=== PATIENT | male | born 1965 ===

== ENCOUNTER 2016-09-25 14:41 | Inpatient (IN) | payer BC ==
[2016-09-25] MEDS ORDERED: Sodium Chloride 0.9% 1,000 ML IV STA ×2 (14:51→16:30)
[2016-09-25 15:32] LABS: BASO % 0.2 % (0.0-2.0); HEMOGLOBIN 14.4 g/dL (12.0-18.0); LYMPH # 0.8 K/uL (1.0-4.3); LYMPH % 6.3 % (20.0-40.0); MEAN CELL VOLUME 92.7 fl (80.0-94.0); MEAN CORPUSCULAR HEMOGLOBIN 31.8 pg (27.0-31.0); MEAN CORPUSCULAR HGB CONC 34.4 g/dL (33.0-37.0); MONO # 0.6 K/uL (0.0-0.8); MONO % 4.8 % (0.0-10.0); NEUT # 11.4 K/uL (1.8-7.0); NEUT % 88.7 % (50.0-75.0); NRBC % 0.1 % (0.0-0.0); PLATELET COUNT 202 K/uL (130-400); RBC 4.52 Mil/uL (4.40-5.90); WHITE BLOOD COUNT 12.8 K/uL (4.8-10.8)
[2016-09-25] MEDS ORDERED: Iohexol 240 (50 ml) PO ONE ×2 (15:49)
[2016-09-25 16:01] LABS: ALB/GLOB RATIO 1.4 (1.0-2.1); ALBUMIN 4.6 g/dL (3.5-5.0); ALT/SGPT 40 U/L (21-72); AST/SGOT 41 U/L (17-59); BLOOD UREA NITROGEN 12 mg/dl (9-20); CALCIUM 10.1 mg/dL (8.4-10.2); GFR AFRICAN-AMERICAN > 60; GFR NON-AFRICAN AMERICAN > 60; LIPASE 23 U/L (23-300)
[2016-09-25] MEDS ORDERED: Iohexol 240 (50 ml) ONE (16:08)
[2016-09-25 16:26] LABS: VENOUS BLOOD GAS BASE EXCESS -1.9 mmol/L (0.0-2.0); VENOUS BLOOD GAS PCO2 35 mmHg (40-60); VENOUS BLOOD GAS PO2 28 mm/Hg (30-55); VENOUS BLOOD PH 7.41 (7.32-7.43)
--- NOTE | 2016-09-25 17:21 | ED PDOC ---
HPI: Abdomen Time Seen by Provider: 09/25/16 14:50 Chief Complaint (Nursing): GI Problem Chief Complaint (Provider): GI Problem History Per: Patient History/Exam Limitations: no limitations Onset/Duration Of Symptoms: Days Current Symptoms Are (Timing): Still Present Additional Complaint(s): 51 y/o male with a past medical history of chronic back pain (On Opioid Pain Management for 10 years) who presents to the emergency department with a complaint of an abdominal pain, loose stools, fever, vomiting, malaise, and generalized weakness x2 days. Described pain as diffused and sharp in nature but poorly localized. Denies previous abdominal surgeries or drug abuse. Past Medical History Reviewed: Historical Data, Nursing Documentation, Vital Signs Vital Signs: Last Vital Signs Temp 99.8 F H 09/25/16 14:42 Pulse 114 H 09/25/16 14:42 Resp 18 09/25/16 14:42 BP 131/67 09/25/16 14:42 Pulse Ox 98 09/25/16 17:38 - Medical History PMH: Back Problems, Gastritis - Family History Family History: States: Unknown Family Hx - Social History Current smoker - smoking cessation education provided: No Alcohol: None Drugs: Denies - Allergies Allergies/Adverse Reactions: Allergies Allergy/AdvReac Type Severity Reaction Status Date / Time No Known Allergies Allergy Verified 09/25/16 14:42 Review of Systems ROS Statement: Except As Marked, All Systems Reviewed And Found Negative Constitutional: Positive for: Fever, Weakness (Generalized), Malaise Gastrointestinal: Positive for: Vomiting, Abdominal Pain, Diarrhea Physical Exam - Reviewed Nursing Documentation Reviewed: Yes Vital Signs Reviewed: Yes - Physical Exam Appears: Positive for: Non-toxic, Uncomfortable Head Exam: Positive for: ATRAUMATIC, NORMAL INSPECTION, NORMOCEPHALIC Skin: Positive for: Normal Color, Warm, Dry ENT: Positive for: Normal ENT Inspection. Negative for: Pharyngeal Erythema Neck: Positive for: Normal, Supple Cardiovascular/Chest: Positive for: Regular Rate, Rhythm. Negative for: Murmur Respiratory: Positive for: Normal Breath Sounds. Negative for: Accessory Muscle Use, Respiratory Distress Gastrointestinal/Abdominal: Positive for: Soft, Tenderness (Diffuse abdominal tenderness). Negative for: Normal Exam Extremity: Positive for: Normal ROM. Negative for: Pedal Edema Neurologic/Psych: Positive for: Alert, Oriented - Laboratory Results Result Diagrams: 09/25/16 15:20 09/25/16 15:20 - ECG O2 Sat by Pulse Oximetry: 98 (RA) Pulse Ox Interpretation: Normal Medical Decision Making Medical Decision Making: Time: 14:50 Initial impression: Abdominal Pain Initial plan: --COMP Metabolic Panel --Lipase --CBC w/ differential --Sodium Chloride 1,000 ml IV 1,000 mls/hr --Ondansetron 4 mg IV --Urinalysis Time: 15:48 --Toradol 15 mg IV --Iohexol 50 ml PO --Abd pelvis PO & IV Contrast CT Time: 16:06 --VBG Shock Panel Time: 1630 --VBG Shock Panel --Sodium Chloride 1,000 ml IV 1,000 mls/hr --Reevaluation lactate elevated 3.6, repeat 3hr VBG w lactate ordered and IVF continued. endorse Dr Tovar 530p pending re-eval, CT abd and dispo Scribe Attestation: Documented by Estela Mcgregor, acting as a scribe for Lc Dorantes MD. Provider Scribe Attestation: All medical record entries made by the Scribe were at my direction and personally dictated by me. I have reviewed the chart and agree that the record accurately reflects my personal performance of the history, physical exam, medical decision making, and the department course for this patient. I have also personally directed, reviewed, and agree with the discharge instructions and disposition. Disposition - Clinical Impression Clinical Impression: Abdominal pain, Dehydration - Patient ED Disposition Is Patient to be Admitted: Transfer of Care Counseled Patient/Family Regarding: Studies Performed, Diagnosis - Disposition Disposition: Transfer of Care Disposition Time: 17:38 Condition: STABLE Patient Signed Over To: Elena Tovar
--- NOTE | 2016-09-25 17:42 | ED PDOC ---
- Laboratory Results Result Diagrams: 09/26/16 06:50 09/26/16 06:50 - ECG O2 Sat by Pulse Oximetry: 98 (RA) Disposition - Clinical Impression Clinical Impression: Colitis - POA Present On Arrival: None - Disposition Disposition: Transfer of Care Disposition Time: 19:00 Condition: STABLE Patient Signed Over To: Raghu Man Handoff Comments: Pending CT and repeat lactate. Addendum Addendum: 09/25/16 17:42 Pt signed out by Dr. Dorantes pending CT and repeat lactate.
[2016-09-25] MEDS ORDERED: Sodium Chloride 0.9% 50 ML IV ONE (17:49)
[2016-09-25] MEDS ORDERED: Iohexol 300 100 ML IJ ONE (17:49)
[2016-09-25 18:03] LABS: LYMPHOCYTE 9 % (20-50); MONOCYTE 6 % (0-10); NEUTROPHIL 85 % (42-75); PLATELET ESTIMATE NORMAL (NORMAL); TOTAL CELLS COUNTED 100
[2016-09-25 18:04] LABS: ANISOCYTOSIS SLIGHT; OVALOCYTES SLIGHT; TEARDROP CELLS SLIGHT
[2016-09-25 18:30] LABS: URINE BACTERIA RARE (<OCC); URINE BILIRUBIN NEGATIVE (NEGATIVE); URINE BLOOD NEGATIVE (NEGATIVE); URINE CLARITY CLEAR (Clear); URINE COLOR YELLOW (YELLOW); URINE GLUCOSE (UA) NEG (Normal); URINE LEUKOCYTE ESTERASE NEG Leu/uL (Negative); URINE NITRATE NEGATIVE (NEGATIVE); URINE PROTEIN 100 mg/dL (NEGATIVE); URINE UROBILINOGEN 0.2-1.0 mg/dL (0.2-1.0)
--- NOTE | 2016-09-25 19:22 | ED PDOC ---
- Laboratory Results Result Diagrams: 09/25/16 15:20 09/25/16 15:20 - ECG O2 Sat by Pulse Oximetry: 98 Medical Decision Making Medical Decision Makin:00 Patient is signed out to me by Elena Tovar MD pending repeat labs, CT abdomen and pelvis with PO and IV contrast, reevaluation, and final disposition. 19:56 CT abdomen and pelvis read and reviewed by radiologist. FINDINGS: Lower thorax: Heart size is normal. Lung bases are clear ABDOMEN: Liver: There are multiple small low-attenuation lesions in the liver too small to characterize.There is fatty infiltration of the liver. Gallbladder and bile ducts: Gallbladder is distended. Common bile duct is unremarkable. Pancreas: Pancreas is mildly atrophic. Spleen: unremarkable Adrenals: unremarkable Kidneys and ureters: unremarkable Stomach and bowel: Stomach is partially distended. Rotation is normal. Small bowel is incompletely opacified with contrast. There is no small bowel obstruction. Terminal ileum is unremarkable. Appendix is not visualized. There is no pericecal inflammation. Colon is incompletely distended which limits evaluation. There is mid and distal transverse colon wall thickening. There is splenic flexure descending colon sigmoid and rectal wall thickening. Appendix: See stomach and bowel PELVIS: Bladder: unremarkable Reproductive: Prostate is unremarkable. There is mild prominence of the seminal vesicles. There is minimal edema adjacent to the seminal vesicles. ABDOMEN and PELVIS: Intraperitoneal space: There is no free air.There is no free fluid. Bones/joints: There are degenerative changes in the osseus structures. Soft tissues: There is a small fat containing umbilical hernia Vasculature: There are calcified phleboliths. Vascular structures are unremarkable. Lymph nodes: There is no pathologic adenopathy. IMPRESSION: Colitis; fatty liver 20:15 Upon provider reevaluation, patient reports having persistent pain. Given CT and lab findings, patient will be admitted for further treatment. Patient will be admitted for colitis and severe sepsis. Discussed case with . Scribe Attestation: Documented by Laurita Anders, acting as a scribe for Raghu Man MD. Provider Scribe Attestation: All medical record entries made by the Scribe were at my direction and personally dictated by me. I have reviewed the chart and agree that the record accurately reflects my personal performance of the history, physical exam, medical decision making, and the department course for this patient. I have also personally directed, reviewed, and agree with the discharge instructions and disposition. Disposition Discussed With : Sd Bonner Doctor Will See Patient In The: Hospital Counseled Patient/Family Regarding: Studies Performed, Diagnosis - Clinical Impression Clinical Impression: Colitis - POA Present On Arrival: None - Disposition Disposition: Admitted as In-Patient Disposition Time: 20:15 Condition: FAIR
--- NOTE | 2016-09-25 19:56 | CT ---
EXAM: CT Abdomen and Pelvis With Intravenous Contrast CLINICAL HISTORY: 51 years old, male; Pain; Abdominal pain; Acute; Additional info: Abdominal pain, vomiting, fever TECHNIQUE: Axial computed tomography images of the abdomen and pelvis with intravenous contrast. This CT exam was performed using one or more of the following dose reduction techniques: automated exposure control, adjustment of the mA and/or kV according to patient size, and/or use of iterative reconstruction technique. Coronal and sagittal reformatted images were created and reviewed. CONTRAST: 95 mL of omnipaque 300 administered intravenously. EXAM DATE/TIME: 09/25/2016 3:49 PM COMPARISON: There are no prior studies for comparison. FINDINGS: Lower thorax: Heart size is normal. Lung bases are clear ABDOMEN: Liver: There are multiple small low-attenuation lesions in the liver too small to characterize.There is fatty infiltration of the liver. Gallbladder and bile ducts: Gallbladder is distended. Common bile duct is unremarkable. Pancreas: Pancreas is mildly atrophic. Spleen: unremarkable Adrenals: unremarkable Kidneys and ureters: unremarkable Stomach and bowel: Stomach is partially distended. Rotation is normal. Small bowel is incompletely opacified with contrast. There is no small bowel obstruction. Terminal ileum is unremarkable. Appendix is not visualized. There is no pericecal inflammation. Colon is incompletely distended which limits evaluation. There is mid and distal transverse colon wall thickening. There is splenic flexure descending colon sigmoid and rectal wall thickening. Appendix: See stomach and bowel PELVIS: Bladder: unremarkable Reproductive: Prostate is unremarkable. There is mild prominence of the seminal vesicles. There is minimal edema adjacent to the seminal vesicles. ABDOMEN and PELVIS: Intraperitoneal space: There is no free air.There is no free fluid. Bones/joints: There are degenerative changes in the osseus structures. Soft tissues: There is a small fat containing umbilical hernia Vasculature: There are calcified phleboliths. Vascular structures are unremarkable. Lymph nodes: There is no pathologic adenopathy. IMPRESSION: Colitis; fatty liver
[2016-09-25 20:10] LABS: VENOUS BLOOD GAS BASE EXCESS -1.8 mmol/L (0.0-2.0); VENOUS BLOOD GAS PCO2 39 mmHg (40-60); VENOUS BLOOD GAS PO2 36 mm/Hg (30-55); VENOUS BLOOD PH 7.38 (7.32-7.43)
[2016-09-25] MEDS ORDERED: Ciprofloxacin 400mg/200ml D5W 400 MG/200 ML BAG IV STA (20:13)
[2016-09-25] MEDS ORDERED: metroNIDAZOLE 500mg/100ml NS 100 ML IVPB STA (20:13)
[2016-09-25] MEDS ORDERED: metroNIDAZOLE 500mg/100ml NS 100 ML IVPB ONE (20:35)
[2016-09-25] MEDS ORDERED: Ciprofloxacin 400mg/200ml D5W 400 MG/200 ML BAG IVPB ONE (20:35)
[2016-09-25] MEDS: Dextrose 5%/0.45% NS 1,000 ML IV SCH (20:38)
[2016-09-25] MEDS ORDERED: FENTANYL 75 MCG TOP PRN (22:38)
[2016-09-26] MEDS ORDERED: metroNIDAZOLE 500mg/100ml NS 100 ML IVPB SCH (01:00)
[2016-09-26] MEDS: Dextrose 5%/0.45% NS 1,000 ML IV SCH ×3 (04:47→21:08)
[2016-09-26] MEDS: metroNIDAZOLE 500mg/100ml NS 100 ML IVPB SCH ×3 (04:49→23:42)
[2016-09-26] MEDS: Dextrose 5%/0.9% NS 1,000 ML IV SCH ×4 (05:53→18:44)
[2016-09-26 07:34] LABS: ALB/GLOB RATIO 1.3 (1.0-2.1); ALBUMIN 3.8 g/dL (3.5-5.0); ALT/SGPT 38 U/L (21-72); AST/SGOT 27 U/L (17-59); BLOOD UREA NITROGEN 9 mg/dl (9-20); CALCIUM 8.4 mg/dL (8.4-10.2); GFR AFRICAN-AMERICAN > 60; GFR NON-AFRICAN AMERICAN > 60
[2016-09-26 07:43] LABS: BASO % 0.1 % (0.0-2.0); EOS % 0.1 % (0.0-4.0); HEMOGLOBIN 13.1 g/dL (12.0-18.0); LYMPH # 2.2 K/uL (1.0-4.3); LYMPH % 22.7 % (20.0-40.0); MEAN CELL VOLUME 93.9 fl (80.0-94.0); MEAN CORPUSCULAR HEMOGLOBIN 32.1 pg (27.0-31.0); MEAN CORPUSCULAR HGB CONC 34.2 g/dL (33.0-37.0); MEAN PLATELET VOLUME 7.2 fl (7.2-11.7); MONO # 0.7 K/uL (0.0-0.8); MONO % 7.3 % (0.0-10.0); NEUT # 6.9 K/uL (1.8-7.0); NEUT % 69.8 % (50.0-75.0); NRBC % 0.1 % (0.0-0.0); RBC 4.06 Mil/uL (4.40-5.90); RED CELL DISTRIBUTION WIDTH 14.1 % (11.5-14.5); WHITE BLOOD COUNT 9.8 K/uL (4.8-10.8)
--- NOTE | 2016-09-26 11:02 | CP.PCM.PN ---
<Yaron Tang - Last Filed: 09/26/16 12:08> Subjective - Date & Time of Evaluation Date of Evaluation: 09/26/16 Time of Evaluation: 11:02 - Subjective Subjective: pt seen and evaluated at bedside this morning. No acute events overnight. Pt reports poor sleep overnight due to noise and discomfort. Lying in bed, mild discomfort, NAD. No episodes of vomiting or diarrhea overnight. pt reports feeling hungry. Has no been OOB since yesterday. Also complains of mild headaches which he feels is due to lack of food and poor sleep. Denies changes in vision. No other complaints. Denies fever/chills, changes in vision, CP/SOB/ palpitations, N/V/D, urinary symptoms, numbness/tingling. Objective - Vital Signs/Intake and Output Vital Signs (last 24 hours): Temp Pulse Resp BP Pulse Ox 98.4 F 89 18 119/68 98 09/26/16 09:00 09/26/16 09:00 09/26/16 09:00 09/26/16 09:00 09/26/16 10:52 - Medications Medications: Current Medications Acetaminophen (Tylenol 325mg Tab) 650 mg PO Q6 PRN PRN Reason: Headache Docusate Sodium (Colace) 100 mg PO BID [facility] Fentanyl (Duragesic) 1 patch TD Q3D [facility] Last Admin: 09/26/16 10:21 Dose: 1 patch Dextrose/Sodium Chloride (Dextrose 5%/0.45% Ns 1000 Ml) 1,000 mls @ 125 mls/hr IV .Q8H [facility] Last Admin: 09/26/16 04:47 Dose: Not Given Ciprofloxacin (Cipro 400mg/200ml Dsw) 400 mg in 200 mls @ 200 mls/hr IVPB Q12 [facility] Dextrose/Sodium Chloride (Dextrose 5%/0.9% Ns 1000 Ml) 1,000 mls @ 100 mls/hr IV .Q10H [facility] Stop: 09/26/16 22:42 Last Admin: 09/26/16 09:14 Dose: Not Given Metronidazole (Flagyl 500mg/100ml Ns) 100 mls @ 100 mls/hr IVPB Q8@0400,1200, 2000 [facility] Last Admin: 09/26/16 04:49 Dose: 100 mls/hr Ondansetron HCl (Zofran Inj) 4 mg IVP Q4 PRN PRN Reason: Nausea/Vomiting Pantoprazole Sodium (Protonix Inj) 40 mg IVP DAILY [facility] Last Admin: 09/26/16 09:23 Dose: 40 mg Sennosides (Senokot Tab) 8.6 mg PO BID [facility] - Labs Labs: 09/26/16 06:50 09/26/16 06:50 - Constitutional Appears: Non-toxic, No Acute Distress - ENT Exam ENT Exam: Mucous Membranes Moist - Respiratory Exam Respiratory Exam: Clear to Ausculation Bilateral, NORMAL BREATHING PATTERN. absent: Rales, Rhonchi, Wheezes - Cardiovascular Exam Cardiovascular Exam: REGULAR RHYTHM, RRR, +S1, +S2. absent: JVD - GI/Abdominal Exam GI & Abdominal Exam: Distended, Soft, Tenderness, Normal Bowel Sounds. absent: Firm, Guarding, Rigid, Rebound - Extremities Exam Extremities Exam: Normal Inspection. absent: Calf Tenderness, Pedal Edema, Tenderness - Neurological Exam Neurological Exam: Alert, Awake, CN II-XII Intact, Oriented x3 Assessment and Plan (1) Colitis Assessment & Plan: -Abd CT: colitis, fatty liver -Currently on IV Abx. Metronidazole and Flagyl -WBC decreased since yesterday -advanced diet to CLD, will consider advancing to Full liquids if pt tolerates -Zofran 4mg PRN N/V -Colace 100mg BID, Sennosides A&B for constipation -f/u CBC in AM Status: Acute (2) Chronic low back pain Assessment & Plan: -will resume pts home medications today as he is no longer NPO -fentanyl 100mg patch -percocet -colace 100mg BID/Sennosides A&B for opiate induced constipation Status: Chronic <Sd Bonner - Last Filed: 09/27/16 09:04> Subjective - Subjective Subjective: I was present during evaluation and discussed with re plans of care and mgt. Objective - Vital Signs/Intake and Output Vital Signs (last 24 hours): Temp Pulse Resp BP Pulse Ox 98.5 F 92 H 20 132/88 99 09/27/16 00:30 09/27/16 00:30 09/27/16 00:30 09/27/16 00:30 09/27/16 00:30 - Medications Medications: Current Medications Acetaminophen (Tylenol 325mg Tab) 650 mg PO Q6 PRN PRN Reason: Headache Last Admin: 09/26/16 14:11 Dose: 650 mg Alprazolam (Xanax) 0.5 mg PO TID PRN PRN Reason: Anxiety Last Admin: 09/26/16 21:07 Dose: 0.5 mg Docusate Sodium (Colace) 100 mg PO BID [facility] Last Admin: 09/26/16 16:56 Dose: Not Given Fentanyl (Duragesic) 1 patch TD Q3D [facility] Last Admin: 09/26/16 10:21 Dose: 1 patch Dextrose/Sodium Chloride (Dextrose 5%/0.45% Ns 1000 Ml) 1,000 mls @ 125 mls/hr IV .Q8H [facility] Last Admin: 09/26/16 21:08 Dose: Not Given Ciprofloxacin (Cipro 400mg/200ml Dsw) 400 mg in 200 mls @ 200 mls/hr IVPB Q12 [facility] Last Admin: 09/26/16 20:53 Dose: 200 mls/hr Metronidazole (Flagyl 500mg/100ml Ns) 100 mls @ 100 mls/hr IVPB Q8@0700,1500, 2300 [facility] Last Admin: 09/27/16 06:04 Dose: 100 mls/hr Ondansetron HCl (Zofran Inj) 4 mg IVP Q4 PRN PRN Reason: Nausea/Vomiting Oxycodone/Acetaminophen (Percocet 5/325 Mg Tab) 2 tab PO QID PRN PRN Reason: Pain, moderate (4-7) Stop: 09/29/16 22:01 Last Admin: 09/27/16 01:03 Dose: 2 tab Pantoprazole Sodium (Protonix Inj) 40 mg IVP DAILY [facility] Last Admin: 09/26/16 09:23 Dose: 40 mg - Labs Labs: 09/27/16 05:45 09/26/16 06:50
[2016-09-26] MEDS: Ciprofloxacin 400mg/200ml D5W 400 MG/200 ML BAG IVPB SCH ×2 (12:06→20:53)
[2016-09-26] MEDS ORDERED: Oxycodone/Acetaminophen 5/325 mg Tab PO PRN ×2 (18:47→18:52)
[2016-09-27 00:30] VITALS: RESP 20
[2016-09-27] MEDS: Oxycodone/Acetaminophen 5/325 mg Tab PO PRN ×2 (01:03→09:19)
[2016-09-27] MEDS: metroNIDAZOLE 500mg/100ml NS 100 ML IVPB SCH (06:04)
[2016-09-27 07:06] LABS: HEMOGLOBIN 12.3 g/dL (12.0-18.0); MEAN CELL VOLUME 93.3 fl (80.0-94.0); MEAN CORPUSCULAR HEMOGLOBIN 32.4 pg (27.0-31.0); MEAN CORPUSCULAR HGB CONC 34.7 g/dL (33.0-37.0); RBC 3.81 Mil/uL (4.40-5.90); RED CELL DISTRIBUTION WIDTH 14.3 % (11.5-14.5); WHITE BLOOD COUNT 6.4 K/uL (4.8-10.8)
--- NOTE | 2016-09-27 09:10 | CP.PCM.HP ---
History of Present Illness - History of Present Illness History of Present Illness: This is a 51 y/o male with hx of chronic pain from lumbar herniated disc, anxiety and insomnia, was admitted through the ER for vomiting and diarrhea for 3 days. Claims that he started having symptoms last Sunday associated with low grade fever and abdominal pain. He tried to self medicate and hydrate but to no avail . Symptoms worsen and sought medical evaluation. Ct scan of the abdomen showed colitis involving the transveres , descending and rectal areas. WBC was 12. 8. Present on Admission - Present on Admission Any Indicators Present on Admission: No History of DVT/PE: No History of Uncontrolled Diabetes: No Urinary Catheter: No Decubitus Ulcer Present: No Review of Systems - Gastrointestinal Gastrointestinal: Abdominal Pain Past Patient History - Past Medical History & Family History Past Medical History?: Yes - Past Social History Smoking Status: Never Smoked - CARDIAC Hx Cardiac Disorders: No - PULMONARY Hx Respiratory Disorders: No - NEUROLOGICAL Hx Neurological Disorder: No - HEENT Hx HEENT Problems: No - RENAL Hx Chronic Kidney Disease: No - ENDOCRINE/METABOLIC Hx Endocrine Disorders: No - HEMATOLOGICAL/ONCOLOGICAL Hx Blood Disorders: No - INTEGUMENTARY Hx Dermatological Problems: No - MUSCULOSKELETAL/RHEUMATOLOGICAL Hx Musculoskeletal Disorders: No Hx Falls: No - GASTROINTESTINAL Hx Gastrointestinal Disorders: Yes Hx Gastritis: Yes - GENITOURINARY/GYNECOLOGICAL Hx Genitourinary Disorders: No - PSYCHIATRIC Hx Psychophysiologic Disorder: No Hx Substance Use: No - SURGICAL HISTORY Hx Surgeries: No - ANESTHESIA Hx Anesthesia: No Hx Anesthesia Reactions: No Hx Malignant Hyperthermia: No Has any member of the family had a problem w/ anesthesia?: No Meds Allergies/Adverse Reactions: Allergies Allergy/AdvReac Type Severity Reaction Status Date / Time No Known Allergies Allergy Verified 09/25/16 14:42 Physical Exam - Head Exam Head Exam: NORMAL INSPECTION - Eye Exam Eye Exam: Normal appearance - ENT Exam ENT Exam: Mucous Membranes Moist - Respiratory Exam Respiratory Exam: Clear to Auscultation Bilateral - Cardiovascular Exam Cardiovascular Exam: REGULAR RHYTHM - GI/Abdominal Exam GI & Abdominal Exam: Guarding, Normal Bowel Sounds, Tenderness - Neurological Exam Neurological exam: CN II-XII Intact Results - Vital Signs Recent Vital Signs: Last Vital Signs Temp 98.5 F 09/27/16 00:30 Pulse 92 H 09/27/16 00:30 Resp 20 09/27/16 00:30 BP 132/88 09/27/16 00:30 Pulse Ox 99 09/27/16 00:30 - Labs Result Diagrams: 09/27/16 05:45 09/26/16 06:50 Labs: Laboratory Results - last 24 hr 09/27/16 05:45 WBC 6.4 RBC 3.81 L Hgb 12.3 Hct 35.5 MCV 93.3 MCH 32.4 H MCHC 34.7 RDW 14.3 Plt Count 154 Assessment & Plan (1) Colitis Status: Acute (2) Chronic low back pain Status: Chronic - Assessment and Plan (Free Text) Plan: keep NPO Hydrate IV antibiotics GI eval recheck CBC cmp
[2016-09-27] MEDS: Ciprofloxacin 400mg/200ml D5W 400 MG/200 ML BAG IVPB SCH (09:16)
--- NOTE | 2016-09-27 09:19 | CP.PCM.DIS ---
Provider - Provider Date of Admission: 09/25/16 20:20 Attending physician: Sd Bonner MD Time Spent in preparation of Discharge (in minutes): 30 Diagnosis - Discharge Diagnosis (1) Colitis Status: Acute (2) Chronic low back pain Status: Chronic Hospital Course - Lab Results Lab Results: Most Recent Lab Values WBC 6.4 K/uL (4.8-10.8) 09/27/16 05:45 RBC 3.81 Mil/uL (4.40-5.90) L 09/27/16 05:45 Hgb 12.3 g/dL (12.0-18.0) 09/27/16 05:45 Hct 35.5 % (35.0-51.0) 09/27/16 05:45 MCV 93.3 fl (80.0-94.0) 09/27/16 05:45 MCH 32.4 pg (27.0-31.0) H 09/27/16 05:45 MCHC 34.7 g/dL (33.0-37.0) 09/27/16 05:45 RDW 14.3 % (11.5-14.5) 09/27/16 05:45 Plt Count 154 K/uL (130-400) 09/27/16 05:45 MPV 7.2 fl (7.2-11.7) 09/26/16 06:50 Neut % (Auto) 69.8 % (50.0-75.0) 09/26/16 06:50 Lymph % (Auto) 22.7 % (20.0-40.0) 09/26/16 06:50 [place] % (Auto) 7.3 % (0.0-10.0) 09/26/16 06:50 Eos % (Auto) 0.1 % (0.0-4.0) 09/26/16 06:50 Baso % (Auto) 0.1 % (0.0-2.0) 09/26/16 06:50 Neut # 6.9 K/uL (1.8-7.0) 09/26/16 06:50 Lymph # 2.2 K/uL (1.0-4.3) 09/26/16 06:50 [place] # 0.7 K/uL (0.0-0.8) 09/26/16 06:50 Eos # 0.0 K/uL (0.0-0.7) 09/26/16 06:50 Baso # 0.0 K/uL (0.0-0.2) 09/26/16 06:50 Neutrophils % (Manual) 85 % (42-75) H 09/25/16 15:20 Lymphocytes % (Manual) 9 % (20-50) L 09/25/16 15:20 Monocytes % (Manual) 6 % (0-10) 09/25/16 15:20 Platelet Estimate Normal (NORMAL) 09/25/16 15:20 Anisocytosis (manual) Slight 09/25/16 15:20 Tear Drop Cells Slight 09/25/16 15:20 Ovalocytes Slight 09/25/16 15:20 ESR 19 mm/hr (0-20) 09/26/16 06:50 pO2 36 mm/Hg (30-55) 09/25/16 20:09 VBG pH 7.38 (7.32-7.43) 09/25/16 20:09 VBG pCO2 39 mmHg (40-60) L 09/25/16 20:09 VBG HCO3 22.8 mmol/L 09/25/16 20:09 VBG Total CO2 24.3 mmol/L (22-28) 09/25/16 20:09 VBG O2 Sat (Calc) 75.2 % (40-65) H 09/25/16 20:09 VBG Base Excess -1.8 mmol/L (0.0-2.0) L 09/25/16 20:09 VBG Potassium 4.0 mmol/L (3.6-5.2) 09/25/16 20:09 Sodium 134.0 mmol/L (132-148) 09/25/16 20:09 Chloride 106.0 mmol/L (98-107) 09/25/16 20:09 Glucose 115 mg/dL (75-110) H 09/25/16 20:09 Lactate 2.2 mmol/L (0.7-2.1) H 09/25/16 20:09 FiO2 21.0 % 09/25/16 20:09 Sodium 141 mmol/l (132-148) 09/26/16 06:50 Potassium 4.2 MMOL/L (3.6-5.0) 09/26/16 06:50 Chloride 109 mmol/L (98-107) H 09/26/16 06:50 Carbon Dioxide 24 mmol/L (22-30) 09/26/16 06:50 Anion Gap 12 (10-20) 09/26/16 06:50 BUN 9 mg/dl (9-20) 09/26/16 06:50 Creatinine 0.7 mg/dL (0.8-1.5) L 09/26/16 06:50 Est GFR ( Amer) > 60 09/26/16 06:50 Est GFR (Non-Af Amer) > 60 09/26/16 06:50 Random Glucose 105 mg/dL (75-110) 09/26/16 06:50 Calcium 8.4 mg/dL (8.4-10.2) 09/26/16 06:50 Total Bilirubin 0.6 mg/dl (0.2-1.3) 09/26/16 06:50 AST 27 U/L (17-59) 09/26/16 06:50 ALT 38 U/L (21-72) 09/26/16 06:50 Alkaline Phosphatase 42 U/L (38-126) 09/26/16 06:50 Total Protein 6.8 G/DL (6.3-8.2) 09/26/16 06:50 Albumin 3.8 g/dL (3.5-5.0) 09/26/16 06:50 Globulin 3.0 gm/dL (2.2-3.9) 09/26/16 06:50 Albumin/Globulin Ratio 1.3 (1.0-2.1) 09/26/16 06:50 Lipase 23 U/L (23-300) 09/25/16 15:20 Venous Blood Potassium 4.0 mmol/L (3.6-5.2) 09/25/16 20:09 Urine Color Yellow (YELLOW) 09/25/16 17:10 Urine Clarity Clear (Clear) 09/25/16 17:10 Urine pH 9.0 (5.0-8.0) 09/25/16 17:10 Ur Specific [place] 1.018 (1.003-1.030) 09/25/16 17:10 Urine Protein 100 mg/dL (NEGATIVE) 09/25/16 17:10 Urine Glucose (UA) Neg mg/dL (Normal) 09/25/16 17:10 Urine Ketones Negative mg/dL (NEGATIVE) 09/25/16 17:10 Urine Blood Negative (NEGATIVE) 09/25/16 17:10 Urine Nitrate Negative (NEGATIVE) 09/25/16 17:10 Urine Bilirubin Negative (NEGATIVE) 09/25/16 17:10 Urine Urobilinogen 0.2-1.0 mg/dL (0.2-1.0) 09/25/16 17:10 Ur Leukocyte Esterase Neg [place]/uL (Negative) 09/25/16 17:10 Urine RBC (Auto) 4 /hpf (0-3) H 09/25/16 17:10 Urine Microscopic WBC 1 /hpf (0-5) 09/25/16 17:10 Urine Bacteria Rare (<OCC) 09/25/16 17:10 - Hospital Course Hospital Course: This is a 51 y/o male admitted for colitis involving the transverese, descending and rectal areas. He presented with vomiting and diarrhea and had low grade fever. WBC was 12.8 He was started on IV Cipro and Flagyl and responded well. His diet was advanced and was sent home on po Flagyl and Cipro. Discharge Exam - Head Exam Head Exam: NORMAL INSPECTION - Eye Exam Eye Exam: Normal appearance - Respiratory Exam Respiratory Exam: NORMAL BREATHING PATTERN - Cardiovascular Exam Cardiovascular Exam: REGULAR RHYTHM - GI/Abdominal Exam GI & Abdominal Exam: Normal Bowel Sounds - Neurological Exam Neurological exam: CN II-XII Intact - Psychiatric Exam Psychiatric exam: Flat Affect - Skin Skin Exam: Dry Discharge Plan - Follow Up Plan Condition: STABLE Disposition: HOME/ ROUTINE Instructions: Gastritis (DC), Diet for Ulcers and Gastritis (GEN), Acute Abdominal Pain (DC) Additional Instructions: follow up in 1 week. Rx given. advised soft diet.
[2016-09-27 09:46] VITALS: BP 152/82; PULSE 77; TEMP 98.3; O2SAT 95
--- NOTE | 2016-09-27 13:22 | CP.PCM.PN ---
Subjective - Date & Time of Evaluation Date of Evaluation: 09/27/16 Time of Evaluation: 13:20 - Subjective Subjective: doing well Objective - Vital Signs/Intake and Output Vital Signs (last 24 hours): Temp Pulse Resp BP Pulse Ox 98.3 F 77 20 152/82 H 95 09/27/16 09:45 09/27/16 09:45 09/27/16 09:45 09/27/16 09:45 09/27/16 09:45 - Medications Medications: Current Medications Acetaminophen (Tylenol 325mg Tab) 650 mg PO Q6 PRN PRN Reason: Headache Last Admin: 09/26/16 14:11 Dose: 650 mg Alprazolam (Xanax) 0.5 mg PO TID PRN PRN Reason: Anxiety Last Admin: 09/26/16 21:07 Dose: 0.5 mg Docusate Sodium (Colace) 100 mg PO BID [facility] Last Admin: 09/27/16 09:13 Dose: Not Given Fentanyl (Duragesic) 1 patch TD Q3D [facility] Last Admin: 09/26/16 10:21 Dose: 1 patch Dextrose/Sodium Chloride (Dextrose 5%/0.45% Ns 1000 Ml) 1,000 mls @ 125 mls/hr IV .Q8H [facility] Last Admin: 09/26/16 21:08 Dose: Not Given Ciprofloxacin (Cipro 400mg/200ml Dsw) 400 mg in 200 mls @ 200 mls/hr IVPB Q12 [facility] Last Admin: 09/27/16 09:16 Dose: 200 mls/hr Metronidazole (Flagyl 500mg/100ml Ns) 100 mls @ 100 mls/hr IVPB Q8@0700,1500, 2300 [facility] Last Admin: 09/27/16 06:04 Dose: 100 mls/hr Ondansetron HCl (Zofran Inj) 4 mg IVP Q4 PRN PRN Reason: Nausea/Vomiting Oxycodone/Acetaminophen (Percocet 5/325 Mg Tab) 2 tab PO QID PRN PRN Reason: Pain, moderate (4-7) Stop: 09/29/16 22:01 Last Admin: 09/27/16 09:19 Dose: 2 tab Pantoprazole Sodium (Protonix Inj) 40 mg IVP DAILY [facility] Last Admin: 09/27/16 09:16 Dose: 40 mg - Labs Labs: 09/27/16 05:45 09/26/16 06:50 - GI/Abdominal Exam GI & Abdominal Exam: Soft, Normal Bowel Sounds Assessment and Plan - Assessment and Plan (Free Text) Assessment: 51 yo male with colitis abx dc planning
--- NOTE | 2016-10-10 09:35 | CON ---
Dr. Lc Francois [facility]: [facility] HPI: 51 y/o male c/o back pain and using opioids for many years. Complications some potentially from LLQ and generalized weakness, did not have any fever /chills, Last colonoscopy was many years ago, but he does not recall when, where , who, or the findings. Currently lying comfortable no apparent distress. or the findings PMx: As above SocHx: As above. MEdications: reviewed ROS: Middle age man PE: Eyes: PEERL Neck: Supple, normal ROM, no appreciative lumps Lungs: Heart: S1 S2 RRR Abdomen: some discomfort in LLQ Labs: Radiology have been reviewed CAT scan shows a left side colitis and Labs include the receive Hb: Assessment and plan: this is a 51 y/o male with ____colitis for now, for 14 days Plan for a Colonoscopy as an outpatient in 4 to 6 weeks. Thank you for the consult, please Dr. Bonenr Lc Francois MD
== END 2016-09-27 13:48 | disposition home or self-care (01) | DRG 392 ==
LOC: H.ER 14:41 → H.ERHOLD 20:20 → H.MEDSURG1 09-26 02:30
PROVIDERS: ADMIT Family Medicine; ATTEND Family Medicine
DX: K52.9 Noninfective gastroenteritis and colitis, unspecified (principal); K76.0 Fatty (change of) liver, not elsewhere classified; E86.0 Dehydration; G89.29 Other chronic pain; Z79.891 Long term (current) use of opiate analgesic; M51.26 Other intervertebral disc displacement, lumbar region; F41.9 Anxiety disorder, unspecified; K29.70 Gastritis, unspecified, without bleeding; G47.00 Insomnia, unspecified